=== PATIENT | male | born 1925 | race Caucasian/White ===

== ENCOUNTER 2016-10-07 22:33 | Inpatient (IN) | payer MEDICARE, OTHER ==
[2016-10-07 22:34] VITALS: BMI 21.1
--- NOTE | 2016-10-07 22:48 | ED PDOC ---
Arrival/HPI - General Time Seen by Provider: 10/07/16 22:41 Historian: Patient, Family (Son) - History of Present Illness Narrative History of Present Illness (Text): 10/07/16 22:43 89 year old male, whose past medical history includes CAD with stents, CVA, COPD , chronic kidney disease, nephrectomy, and peripheral vascular disease, who presents to the Emergency department accompanied by family complaining of chest discomfort for about 30 minutes prior to arrival. Son reports associated shortness of breath. The patient denies any fever, chills, headache, abdominal pain, nausea, vomiting, diarrhea, or any other complaints. PMD: Dr. Nader Turner Time/Duration: 1/2 hour Symptom Onset: Gradual Symptom Course: Unchanged Activities at Onset: Rest, Light Context: Home Past Medical History - Provider Review Nursing Documentation Reviewed: Yes - Cardiac Hx Cardiac Disorders: Yes - Pulmonary Hx Chronic Obstructive Pulmonary Disease (COPD): Yes - Neurological HX Cerebrovascular Accident: Yes (08/2013) - HEENT Hx HEENT Disorder: No - Renal Hx Renal Failure: Yes - Endocrine/Metabolic Hx Endocrine Disorders: No - Hematological/Oncological Hx Blood Disorders: No - Integumentary Hx Dermatological Disorder: No - Musculoskeletal/Rheumatological Hx Falls: No - Gastrointestinal Hx Gastrointestinal Disorders: No - Genitourinary/Gynecological Hx Genitourinary Disorders: No - Psychiatric Hx Psychophysiologic Disorder: No Hx Substance Use: No - Surgical History Other/Comment: nephrectomy - Anesthesia Hx Anesthesia: Yes Hx Anesthesia Reactions: No Hx Malignant Hyperthermia: No Family/Social History - Physician Review Nursing Documentation Reviewed: Yes Family/Social History: Unknown Family HX Smoking Status: Former Smoker Hx Alcohol Use: No Hx Substance Use: No Allergies/Home Meds Allergies/Adverse Reactions: Allergies No Known Allergies Allergy (Verified 10/06/15 13:57) Home Medications: Home Meds Medication Instructions Recorded Confirmed Amlodipine Besylate 5 mg PO DAILY 02/28/15 10/07/16 Clopidogrel [Plavix] 10/06/15 Review of Systems - Physician Review All systems were reviewed & negative as marked: Yes - Review of Systems Constitutional: Normal. absent: Fevers Respiratory: SOB Cardiovascular: Chest Pain Gastrointestinal: Normal. absent: Abdominal Pain, Diarrhea, Nausea, Vomiting Neurological: Normal. absent: Headache, Dizziness Physical Exam Vital Signs Reviewed: Yes Vital Signs Temp Pulse Resp BP Pulse Ox 10/07/16 22:51 98.6 F 68 20 143/75 93 L Temperature: Afebrile Blood Pressure: Normal Pulse: Regular Respiratory Rate: Normal Appearance: Positive for: Non-Toxic, Comfortable Pain Distress: None Mental Status: Positive for: Alert and Oriented X 3 - Systems Exam Head: Present: Atraumatic, Normocephalic Pupils: Present: PERRL Extroacular Muscles: Present: EOMI Conjunctiva: Present: Normal Mouth: Present: Moist Mucous Membranes Neck: Present: Normal Range of Motion Respiratory/Chest: Present: Decreased Breath Sounds (Decreased breath sounds bilaterally). No: Respiratory Distress, Accessory Muscle Use Cardiovascular: Present: Regular Rate and Rhythm, Normal S1, S2. No: Murmurs Abdomen: Present: Normal Bowel Sounds. No: Tenderness, Distention, Peritoneal Signs Back: Present: Normal Inspection Upper Extremity: Present: Normal Inspection. No: Cyanosis, Edema Lower Extremity: Present: Other (Venous stasis to bilateral lower extremities). No: Edema Neurological: Present: GCS=15, CN II-XII Intact, Speech Normal Skin: Present: Warm, Dry, Normal Color. No: Rashes Psychiatric: Present: Alert, Oriented x 3, Normal Insight, Normal Concentration Medical Decision Making ED Course and Treatment: 10/07/16 22:14 Impression: 89 year old male complaining of chest pain and shortness of breath tonight. Differential Diagnosis included but are not limited to: cardiac angina vs. COPD vs. pneumonia vs. CHF Plan: -- EKG -- Labs -- CXR -- Aspirin -- Morphine -- Nitroglycerin -- Duoneb Prior Visits: Notes and results from previous visits were reviewed. On 10/06/2015, pt was seen in the ED for a right lower leg laceration. Pt was d/ c home. Progress Notes: EKG: Ordered, reviewed, and independently interpreted the EKG. Rate : 81 BPM Rhythm : sinus rhythm Interpretation : PAC. RBBB. Non-specific ST/T wave changes. 10/08/16 00:23 Reviewed radiology, CXR shows mildly increased pulmonary vascular markings. 10/08/16 02:[address] Olguin, who is aware and agrees with plan. Accepts pt in to her service. Pt will be admitted to Telemetry for CHF, COPD, and chest pain. Requests Dr. Padilla and Dr. Coleman on consult. - Lab Interpretations Lab Results: 10/07/16 23:30 10/07/16 23:30 Lab Results 10/07/16 23:30: PT 13.1 H, INR 1.21 H, APTT 32.1 H 10/07/16 23:30: WBC 2.3 L* D, RBC 2.75 L, Hgb 8.8 L, Hct 27.5 L, MCV 100.0, MCH 32.0, MCHC 32.0, RDW 22.9 H, Plt Count 90 L, MPV 11.6 H 10/07/16 23:30: Sodium 140, Potassium 6.0 H* D, Chloride 107, Carbon Dioxide 24 , Anion Gap 15, BUN 45 H, Creatinine 2.1 H, Est GFR ( Amer) 36, Est GFR ( Non-Af Amer) 30, Random Glucose 112 H, Calcium 8.9, Total Bilirubin 0.5, AST 39 , ALT 38, Alkaline Phosphatase 189 H, Lactate Dehydrogenase 420, Total Creatine Kinase < 20 L, Troponin I < 0.01, NT-Pro-B Natriuret Pep H, Total Protein 6.0, Albumin 3.6, Globulin 2.4, Albumin/Globulin Ratio 1.5 I have reviewed the lab results: Yes - RAD Interpretation Radiology Orders: 10/07/16 22:51 CHEST PORTABLE [RAD] Stat Bookkeeping Machine Operator: ED Physician - EKG Interpretation Interpreted by ED Physician: Yes Type: 12 lead EKG - Medication Orders Current Medication Orders: Methylprednisolone (Solu-Medrol) 125 mg IVP ONCE ONE Stop: 10/08/16 02:24 Discontinued Medications Albuterol Sulfate (Albuterol 0.5% Inhal Samantha (2.5 Mg/0.5 Ml) Ud) 10 mg IH STAT STA Stop: 10/08/16 01:49 Albuterol/Ipratropium (Duoneb 3 Mg/0.5 Mg (3 Ml) Ud) 3 ml IH ONCE STA Stop: 10/07/16 22:52 Last Admin: 10/08/16 00:24 Dose: 3 ml Aspirin (Aspirin) 325 mg PO ONCE STA Stop: 10/07/16 22:52 Last Admin: 10/08/16 00:24 Dose: 325 mg Dextrose (Dextrose 50% Inj) 50 ml IVP ONCE ONE Stop: 10/08/16 01:51 Furosemide (Lasix) 40 mg IVP ONCE ONE Stop: 10/08/16 01:49 Insulin Human Regular (Humulin R) 10 units IVP STAT STA Stop: 10/08/16 01:51 Morphine Sulfate (Morphine) 2 mg IVP STAT STA Stop: 10/07/16 22:52 Last Admin: 10/08/16 00:24 Dose: 2 mg Nitroglycerin (Nitro-Bid 2% Oint) 1 ea TOP ONCE STA Stop: 10/07/16 22:52 Last Admin: 10/08/16 00:26 Dose: 1 ea Sodium Polystyrene Sulfonate (Kayexalate Oral Susp) 30 gm PO ONCE ONE Stop: 10/08/16 01:50 - Scribe Statement The provider has reviewed the documentation as recorded by the Bartolome Gomez training under Jacqui Wise Provider Attestation: All medical record entries made by the Scribe were at my direction and personally dictated by me. I have reviewed the chart and agree that the record accurately reflects my personal performance of the history, physical exam, medical decision making, and the department course for this patient. I have also personally directed, reviewed, and agree with the discharge instructions and dispositi Disposition/Present on Arrival - Present on Arrival Any Indicators Present on Arrival: No History of DVT/PE: No History of Uncontrolled Diabetes: No Urinary Catheter: No History of Decub. Ulcer: No History Surgical Site Infection Following: None - Disposition Have Diagnosis and Disposition been Completed?: Yes Diagnosis: Chest pain, CHF (congestive heart failure), COPD exacerbation Disposition: HOSPITALIZED Disposition Time: 02:15 Patient Plan: Admission Patient Problems: Current Active Problems Problem Status Onset CHF (congestive heart failure) Acute COPD exacerbation Acute Chest pain Acute Condition: STABLE Discharge Instructions (ExitCare): Heart Failure (ED), Chest Pain (ED)
[2016-10-07] MEDS ORDERED: Albuterol-Ipratrop 3 mg / 0.5 (3 ml) UD IH STA (22:51)
[2016-10-07] MEDS ORDERED: Morphine 2 mg/ml ISec IVP STA (22:51)
[2016-10-07] MEDS ORDERED: Nitroglycerin 2% Ointment Foilpak UD TOP STA (22:51)
[2016-10-08 00:01] LABS: ALB/GLOB RATIO 1.5 (1.1-1.8); ALBUMIN 3.6 g/dL (3.0-4.8); ALT/SGPT 38 U/L (7-56); AST/SGOT 39 U/L (15-59); BLOOD UREA NITROGEN 45 mg/dL (7-21); CALCIUM 8.9 mg/dL (8.4-10.5); GFR AFRICAN-AMERICAN 36; GFR NON-AFRICAN AMERICAN 30
[2016-10-08 00:07] LABS: HEMOGLOBIN 8.8 gm/dL (14.0-18.0); RBC 2.75 10^6/uL (3.5-6.1); RED CELL DISTRIBUTION WIDTH 22.9 % (11.5-14.5)
[2016-10-08 00:08] LABS: MEAN PLATELET VOLUME 11.6 fl (7.0-11.0)
[2016-10-08 00:10] LABS: WHITE BLOOD COUNT 2.3 10^3/ul (4.5-11.0)
[2016-10-08 00:12] LABS: B-TYPE NATRIURETIC PEPTIDE 14700 pg/mL (0-450)
[2016-10-08 00:14] LABS: INR 1.21 (0.93-1.08); PARTIAL THROMBOPLASTIN TIME 32.1 Seconds (23.7-30.8); PROTHROMBIN TIME 13.1 Seconds (9.9-11.8)
[2016-10-08 00:32] LABS: TROPONIN I < 0.01 ng/mL
[2016-10-08] MEDS ORDERED: Albuterol 0.5% Inhal Sol (2.5 mg/0.5 ml) UD IH STA (01:48)
[2016-10-08] MEDS ORDERED: Sod Polystyrene Sulf 15 gm/60 ml Oral Susp PO ONE ×2 (01:49→19:13)
[2016-10-08] MEDS ORDERED: Insulin Regular 1 UNITS/0.01 ML ML IVP STA (01:50)
[2016-10-08] MEDS ORDERED: Dextrose 50% SYRINGE Inj (50 ml) IVP ONE (01:50)
[2016-10-08] MEDS ORDERED: Morphine 2 mg/ml ISec IVP STA (02:54)
[2016-10-08] MEDS ORDERED: Morphine 2 mg/ml ISec ONE (02:56)
[2016-10-08] MEDS ORDERED: AMLODIPINE BESYLATE 5 MG PO SCH (10:00)
--- NOTE | 2016-10-08 10:22 | CARD ---
APPROVED REPORT EKG Measurement Heart [id number] <Conclusion> Sinus tachycardia with fusion complexes Right bundle branch block Abnormal ECG
--- NOTE | 2016-10-08 10:23 | CARD ---
APPROVED REPORT EKG Measurement Heart [id number] <Conclusion> Sinus rhythm with premature atrial complexes with aberrant conduction Right bundle branch block Abnormal ECG
[2016-10-08] MEDS: Albuterol-Ipratrop 3 mg / 0.5 (3 ml) UD IH SCH ×2 (13:49→19:19)
--- NOTE | 2016-10-08 15:06 | RAD ---
HISTORY: chest pain COMPARISON: No prior. FINDINGS: LUNGS: The lungs appear slightly hyperinflated ; rule out chronic changes of emphysema or COPD. Mild bibasilar atelectasis right greater than left. Developing infiltrate could be excluded with followup radiographs elevation left hemidiaphragm due to distended air-filled stomach. PLEURA: No significant pleural effusion identified, no pneumothorax apparent. CARDIOVASCULAR: Normal. OSSEOUS STRUCTURES: No significant abnormalities. VISUALIZED UPPER ABDOMEN: Normal. OTHER FINDINGS: None. IMPRESSION: The lungs appear slightly hyperinflated ; rule out chronic changes of emphysema or COPD. Mild bibasilar atelectasis right greater than left. Developing infiltrate could be excluded with followup radiographs elevation left hemidiaphragm due to distended air-filled stomach.
--- NOTE | 2016-10-08 16:59 | CP.PCM.HP ---
History of Present Illness - History of Present Illness History of Present Illness: Narrative History of Present Illness (Text): 10/08/16 89 year old male, whose past medical history includes CAD with stents, CVA, COPD , chronic kidney disease, nephrectomy, and peripheral vascular disease, who presents to the Emergency department accompanied by family complaining of chest discomfort for about 30 minutes prior to arrival. Son reports associated shortness of breath. The patient denies any fever, chills, headache, abdominal pain, nausea, vomiting, diarrhea, or any other complaints. sitting on the bed side , all ouestions answered Present on Admission - Present on Admission Any Indicators Present on Admission: No Review of Systems - Review of Systems All systems: reviewed and no additional remarkable complaints except - Constitutional Constitutional: As Per HPI - EENT Eyes: As Per HPI Ears: As Per HPI Nose/Mouth/Throat: As Per HPI - Cardiovascular Cardiovascular: As Per HPI - Respiratory Respiratory: As Per HPI - Gastrointestinal Gastrointestinal: As Per HPI - Genitourinary Genitourinary: As Per HPI - Musculoskeletal Musculoskeletal: As Per HPI - Integumentary Integumentary: As Per HPI - Neurological Neurological: As Per HPI - Psychiatric Psychiatric: As Per HPI - Endocrine Endocrine: As Per HPI - Hematologic/Lymphatic Hematologic: As Per HPI Past Patient History - Infectious Disease Hx of Infectious Diseases: None - Past Social History Smoking Status: Former Smoker - CARDIAC Hx Cardiac Disorders: Yes - PULMONARY Hx Chronic Obstructive Pulmonary Disease (COPD): Yes - NEUROLOGICAL HX Cerebrovascular Accident: Yes (08/2013) - HEENT Hx HEENT Problems: No - RENAL Hx Renal Failure: Yes - ENDOCRINE/METABOLIC Hx Endocrine Disorders: No - HEMATOLOGICAL/ONCOLOGICAL Hx Blood Disorders: No - INTEGUMENTARY Hx Dermatological Problems: No - MUSCULOSKELETAL/RHEUMATOLOGICAL Hx Falls: No - GASTROINTESTINAL Hx Gastrointestinal Disorders: No - GENITOURINARY/GYNECOLOGICAL Hx Genitourinary Disorders: No - PSYCHIATRIC Hx Psychophysiologic Disorder: No - SURGICAL HISTORY Other/Comment: nephrectomy - ANESTHESIA Hx Anesthesia: Yes Hx Anesthesia Reactions: No Hx Malignant Hyperthermia: No Meds Allergies/Adverse Reactions: Allergies Allergy/AdvReac Type Severity Reaction Status Date / Time No Known Allergies Allergy Verified 10/06/15 13:57 Physical Exam - Constitutional Appears: Well - Head Exam Head Exam: ATRAUMATIC, NORMAL INSPECTION, NORMOCEPHALIC - Eye Exam Eye Exam: EOMI, Normal appearance, PERRL Pupil Exam: NORMAL ACCOMODATION, PERRL - ENT Exam ENT Exam: Mucous Membranes Moist, Normal Exam - Neck Exam Neck exam: Positive for: Normal Inspection - Respiratory Exam Respiratory Exam: Clear to Auscultation Bilateral, NORMAL BREATHING PATTERN - Cardiovascular Exam Cardiovascular Exam: REGULAR RHYTHM - GI/Abdominal Exam GI & Abdominal Exam: Normal Bowel Sounds, Soft. absent: Tenderness - Rectal Exam Rectal Exam: NORMAL INSPECTION - Exam Exam: Circumcision, NORMAL INSPECTION External exam: NORMAL EXTERNAL EXAM Speculum exam: NORMAL SPECULUM EXAM Bimanual exam: NORMAL BIMANUAL EXAM - Extremities Exam Extremities exam: Positive for: normal inspection - Back Exam Back exam: NORMAL INSPECTION - Neurological Exam Neurological exam: Alert, CN II-XII Intact, Normal Gait, Oriented x3, Reflexes Normal - Psychiatric Exam Psychiatric exam: Normal Affect, Normal Mood - Skin Skin Exam: Dry, Intact, Normal Color, Warm Results - Vital Signs Recent Vital Signs: Last Vital Signs Temp 97.5 F L 10/08/16 12:00 Pulse 70 10/08/16 16:17 Resp 15 10/08/16 12:00 BP 129/68 10/08/16 12:00 Pulse Ox 93 L 10/07/16 22:51 - Labs Result Diagrams: 10/07/16 23:30 10/07/16 23:30 Assessment & Plan - Assessment and Plan (Free Text) Assessment: 89 year old male, whose past medical history includes CAD with stents, CVA, COPD , chronic kidney disease, nephrectomy, and peripheral vascular disease, who presents to the Emergency department accompanied by family complaining of chest discomfort for about 30 minutes prior to arrival. Son reports associated shortness of breath. The patient denies any fever, chills, headache, abdominal pain, nausea, vomiting, diarrhea, or any other complaints. pt had RI . called renal consuit . hyperkalemia . got treatment in er , will repeat k , stat , chf . cardiology consult called , getting lasix , copd pul. on the case . . meds ordered , willrepeat labs - Date & Time Date: 10/08/16 Time: 11:00
[2016-10-08] MEDS: Arformoterol 15 mcg/2 ml Inh Sol IH SCH (19:19)
[2016-10-08] MEDS: Budesonide 0.5 mg/2 ml Inhal Susp UD IH SCH (19:19)
[2016-10-08] MEDS: MethylPREDNISolone 40 mg Vial IVP SCH (21:43)
[2016-10-09] MEDS: Albuterol-Ipratrop 3 mg / 0.5 (3 ml) UD IH SCH ×4 (01:32→19:38)
[2016-10-09 04:12] VITALS: RESP 20
[2016-10-09 06:21] LABS: MEAN CELL VOLUME 97.9 fL (80.0-105.0); MEAN CORPUSCULAR HEMOGLOBIN 31.3 pg (25.0-35.0); RBC 2.33 10^6/uL (3.5-6.1); RED CELL DISTRIBUTION WIDTH 22.5 % (11.5-14.5)
[2016-10-09 06:28] VITALS: O2SAT 94
[2016-10-09 06:43] LABS: HEMOGLOBIN 7.3 gm/dL (14.0-18.0)
[2016-10-09 06:54] LABS: ALB/GLOB RATIO 1.4 (1.1-1.8); ALT/SGPT 28 U/L (7-56); AST/SGOT 25 U/L (15-59); BLOOD UREA NITROGEN 52 mg/dL (7-21); CALCIUM 8.5 mg/dL (8.4-10.5); GFR AFRICAN-AMERICAN 38; GFR NON-AFRICAN AMERICAN 32; HDL CHOLESTEROL 44 mg/dL (29-60)
[2016-10-09 06:56] LABS: % IRON SATURATION 77 % (20-55); IRON 149 ug/dL (45-180); TOTAL IRON BINDING CAPACITY 194 ug/dL (261-462)
[2016-10-09 07:02] LABS: TROPONIN I 0.02 ng/mL
[2016-10-09 07:06] LABS: LDL CHOLESTEROL 41 mg/dL (0-129)
[2016-10-09] MEDS ORDERED: Pantoprazole 40 mg Susp UD PO SCH (07:30)
[2016-10-09] MEDS: Budesonide 0.5 mg/2 ml Inhal Susp UD IH SCH ×2 (07:35→19:38)
[2016-10-09] MEDS: Arformoterol 15 mcg/2 ml Inh Sol IH SCH ×2 (07:35→19:38)
--- NOTE | 2016-10-09 08:53 | CON ---
DATE: 10/08/2016 REFERRING PHYSICIAN: Velvet Olguin MD REASON OF CONSULT: Cough, shortness of breath, history chronic obstructive lung disease. HISTORY OF PRESENT ILLNESS: This is an 89-year-old gentleman with past medical history significant for coronary artery disease, history of coronary stent, peripheral vascular disease requiring stent, history of stroke, chronic obstructive lung disease, chronic kidney disease with a dysfunctional one kidney, comes into emergency room with chest pain, shortness of breath, cough, and sputum production. No hemoptysis, no hematemesis, no hematuria, no diarrhea reported. PAST MEDICAL HISTORY: Chronic obstructive lung disease, history of CVA, chronic artery disease, history of stent, peripheral vascular disease requiring stent, and also dysfunctional one kidney. FAMILY HISTORY: No history of cardiopulmonary disease reported. SOCIAL HISTORY: Stopped smoking many years ago. Denies any alcohol use. ALLERGIES: NONE KNOWN. MEDICATIONS: She is on DuoNeb q. 6 hours, Lipitor 20 mg daily, Norvasc 5 mg daily, Protonix 40 mg daily, Tylenol p.r.n. basis. REVIEW OF SYSTEMS: No headache. He has some rhinitis, postnasal drip, cough with clear sputum. Presently, there is no chest pain, no nausea, no vomiting, no diarrhea, no leg pain. Does have some leg swelling. PHYSICAL EXAMINATION GENERAL: Seen and examined at the bedside. Family is at bedside, in no acute distress. VITAL SIGNS: Temp is 98, heart rate 71, respiratory rate 18, blood pressure 129/68, pulse ox 93% on room air. HEENT: Moist mucous membranes. Crowded airway. NECK: Supple. No JVD. LUNGS: Scattered rhonchi and wheezing. CARDIOPULMONARY: S1 and S2. ABDOMEN: Soft. Nontender. No organomegaly. EXTREMITIES: Does have edema of the lower extremity. NEUROLOGICAL: Awake and alert, follows simple commands. LABORATORY DATA: Shows hemoglobin 8.8, hematocrit 27.5, WBC 2.3, platelet count is 90. INR 1.21, PTT is 32. Sodium 140, potassium 6.0, chloride 107, bicarbonate 24, BUN 45, creatinine 2.1, glucose 112, calcium 8.9. AST 39, ALT 38, alkaline phosphatase 189. Troponin less than 0.01, total protein 6.0, albumin 3.6. Head and chest x-ray done, which shows hyperinflated basilar atelectasis, right greater than the left. IMPRESSION AND PLAN: Chronic obstructive lung disease, may have basilar pneumonia, renal failure, coronary artery disease, history of coronary stent, and peripheral vascular disease also with stent. Case discussed with the family at bedside, all the question answered. We will add inhaled bronchodilator,doxycycline 100 mg twice a day, Solu-Medrol 20 mg q. 8 hours. We will check if got Kayexalate, otherwise give dose of Kayexalate; followup electrolytes, CBC. In the past history of pneumonia requiring transfusion. Thank you, I will follow with you. Cyn Coleman MD
[2016-10-09] MEDS ORDERED: Sod Polystyrene Sulf 15 gm/60 ml Oral Susp PO ONE ×2 (09:12→19:50)
[2016-10-09] MEDS: MethylPREDNISolone 40 mg Vial IVP SCH ×2 (10:12→21:58)
--- NOTE | 2016-10-09 12:24 | CON ---
DATE: 10/08/2016 Room 261, bed 2. REASON FOR CONSULTATION: Chest pain. HISTORY OF PRESENT ILLNESS: An 89-year-old male who known to have coronary artery disease with stent inflation, CVA, COPD, chronic kidney disease, nephrectomy, and peripheral vascular disease who came to emergency room with burning type of chest pain, which lasted about 10 minutes or so. Denies diaphoresis, nausea, or vomiting. Denies any chest pain on exertion prior to this. PAST MEDICAL HISTORY: Positive for coronary artery disease with stent insertion, CVA, COPD, chronic kidney disease, nephrectomy, and peripheral vascular disease. PERSONAL HISTORY: Used to smoke about half pack a day. Does not smoke now. Denies drinking. ALLERGIES: THE PATIENT DENIES ANY ALLERGIES. HOME MEDICATIONS: Included: 1. Norvasc 5 mg daily. 2. Lipitor 20 mg daily. 3. Amlodipine 5 mg daily. 4. Plavix 75 mg daily. REVIEW OF SYSTEMS: All other systems reviewed positive as mentioned in history; otherwise, negative. PHYSICAL EXAMINATION: VITAL SIGNS: Blood pressure 129/68, respirations 16, pulse 72, and temperature 97.5. HEENT: Head is normocephalic. Eyes, pupils normal. Conjunctivae slightly pale. NECK: JVP low. Carotids equal. Thorax, AP diameter slightly increased. CARDIOVASCULAR: S1 and S2. LUNGS: No significant rales. ABDOMEN: Soft and nontender. No organomegaly. EXTREMITIES: No clubbing. No cyanosis. LABORATORY DATA: WBC 2.3, hemoglobin 8.8, hematocrit 27.5, and platelets 90. Sodium 140, potassium 6.0, BUN 45, and creatinine 2.1. Random glucose 112. AST and ALT normal. [id number] natriuretic peptide 14,700. Troponin less than 0.01. Total protein abnd bilirubin normal. Chest x-ray elevation of the left hemidiaphragm with gas-filled stomach, emphysematous type of chest x-ray, mild bibasilar atelectasis, a developing infiltrate cannot be excluded. EKG showed sinus tachycardia with *------*complexes, right bundle-branch block. DIAGNOSES: 1. Chest pain. 2. Coronary artery disease. 3. Chronic obstructive pulmonary disease. 4. Old cerebrovascular accident. 5. Peripheral vascular disease. 6. Anemia. 7. Renal dysfunction. 8. Leukopenia. 9. Thrombocytopenia. PLAN: The patient is on Lipitor 20 mg daily, amlodipine 5 mg daily, Plavix 75 mg daily, aspirin 81 mg daily, Solu-Medrol 20 mg IV q.12 hours, also we will add small dose of beta-blockers and Lopressor 25 b.i.d. We will do an echo and we will do IV Lexiscan scan stress test and we will follow with you. Cyn May MD
[2016-10-09 12:47] LABS: FOLATE 7.6 ng/mL
[2016-10-09 13:05] LABS: % IRON SATURATION 81 % (20-55); IRON 160 ug/dL (45-180); TOTAL IRON BINDING CAPACITY 197 ug/dL (261-462)
[2016-10-09 17:27] LABS: FOLATE 9.8 ng/mL
[2016-10-09 19:12] VITALS: TEMP 98.2
[2016-10-09 22:01] VITALS: BP 137/76; PULSE 88
--- NOTE | 2016-10-09 22:04 | CP.PCM.PN ---
Subjective - Date & Time of Evaluation Date of Evaluation: 10/09/16 Time of Evaluation: 22:02 - Subjective Subjective: Patient is alert and oriented, pancytopenia, nephrectomy, cad, copd reviewed, no cp or sob at time of eval. Patient has all his medical treatment in [facility] and wanted to leave ama as he was feeling better. Pt's at the bed side, also spoke to patient's daughter about same and wanted to leave. Primary team notified by the nursing. Patient signed ama sheet, please see the details. Objective - Vital Signs/Intake and Output Vital Signs (last 24 hours): Temp Pulse Resp BP Pulse Ox 98.2 F 88 20 137/76 94 L 10/09/16 19:11 10/09/16 21:54 10/09/16 18:00 10/09/16 21:54 10/09/16 06:00 Intake and Output: 10/09/16 10/10/16 18:59 06:59 Intake Total 0 375 Balance 0 375 - Medications Medications: Current Medications Acetaminophen (Tylenol 325mg Tab) 650 mg PO Q6H PRN PRN Reason: Fever >100.4 F Albuterol/Ipratropium (Duoneb 3 Mg/0.5 Mg (3 Ml) Ud) 3 ml IH [id number] [facility] Last Admin: 10/09/16 19:38 Dose: 3 ml Amlodipine Besylate (Norvasc) 5 mg PO DAILY [facility] Last Admin: 10/09/16 10:12 Dose: 5 mg Arformoterol Tartrate (Brovana) 15 mcg IH [id number] [facility] Last Admin: 10/09/16 19:38 Dose: 15 mcg Aspirin (Ecotrin) 81 mg PO DAILY [facility] Last Admin: 10/09/16 10:12 Dose: 81 mg Atorvastatin Calcium (Lipitor) 20 mg PO DIN [facility] Last Admin: 10/08/16 18:25 Dose: 20 mg Budesonide (Pulmicort Respules) 0.5 mg IH [id number] [facility] Last Admin: 10/09/16 19:38 Dose: 0.5 mg Clopidogrel Bisulfate (Plavix) 75 mg PO DAILY [facility] Last Admin: 10/09/16 10:12 Dose: 75 mg Doxycycline Hyclate (Doryx) 100 mg PO Q12 [facility] PRN Reason: Protocol Last Admin: 10/09/16 21:55 Dose: 100 mg Methylprednisolone (Solu-Medrol) 20 mg IVP Q12 JANICE Last Admin: 10/09/16 21:58 Dose: 20 mg Metoprolol Tartrate (Lopressor) 25 mg PO Q12 [facility] Last Admin: 10/09/16 21:54 Dose: 25 mg Pantoprazole Sodium (Protonix Susp) 40 mg PO ACB [facility] Last Admin: 10/09/16 10:12 Dose: 40 mg - Labs Labs: 10/09/16 06:00 10/09/16 07:30 PT 13.1 Seconds (9.9-11.8) H 10/07/16 23:30 INR 1.21 (0.93-1.08) H 10/07/16 23:30 APTT 32.1 Seconds (23.7-30.8) H 10/07/16 23:30
--- NOTE | 2016-10-10 01:37 | PN ---
PULMONARY PROGRESS NOTE DATE: 10/09/2016 REFERRING PHYSICIAN: Dr. Olguin. SUBJECTIVE: He is lying in the bed, sleepy, arousable, getting blood transfusion. Cough is better, shortness of breath is better. Decreased sputum production. No nausea, no vomiting, no diarrhea. No leg pain or leg swelling. OBJECTIVE: GENERAL: No acute distress. VITAL SIGNS: Temperature 98, heart rate 87, respiratory rate is 20, blood pressure 136/78. HEENT: Moist mucous membranes. Crowded airway. NECK: Supple. No JVD. LUNGS: Have a few scattered rhonchi. HEART: S1 and S2. ABDOMEN: Soft, nontender. No organomegaly. EXTREMITIES: No edema. NEUROLOGIC: Sleepy, arousable. Follows simple commands. MEDICATIONS: He is on Brovana 15 mcg inhaled twice a day, doxycycline 100 mg twice a day, DuoNeb q. 6 hours, Ecotrin 81 mg daily, Lipitor 20 mg daily, metoprolol tartrate 25 mg twice a day, Norvasc 5 mg daily, Plavix 75 mg daily, Protonix 40 mg daily, Pulmicort inhaled twice a day, Solu-Medrol 20 mg q. 12 hours, Tylenol p.r.n. basis. LABORATORY DATA: Shows hemoglobin 7.3, being transfused; hematocrit 22.8; WBC 1.0; platelet is 54. Potassium of 5.5, iron 160, ferritin 986, sodium 139, chloride 105, bicarbonate 26, BUN 52, creatinine 2.0. Hemoglobin A1c is 6.9. AST 25, ALT 28, alkaline phosphatase is 152, albumin is 3.0. IMPRESSION AND PLAN: Chronic obstructive lung disease, basilar infiltrate, may have pneumonia, renal failure, coronary artery disease, history of coronary stent, peripheral vascular disease requiring stent, hyperkalemia, anemia, transfusion done in the past, presently getting transfusion. Continue p.o. and inhaled bronchodilator, continue Kayexalate. Follow potassium. Continue platelet inhibitor. We will send . Thank you and we will follow with you. Cyn Coleman MD
--- NOTE | 2016-10-10 02:28 | CON ---
DATE OF CONSULTATION: 10/09/2016 REASON FOR CONSULTATION: Chronic kidney disease and hyperkalemia. HISTORY OF PRESENTING ILLNESS: The patient is an 89-year-old male previously unknown to me admitted on 10/08 with complaints for left-sided chest pain. The patient has a history of CAD with stents, CVA, COPD, chronic kidney disease, nephrectomy and peripheral vascular disease was brought to the emergency room with chest discomfort of 30 minutes duration, It was associated with shortness of breath. There was no history of cough, fevers, chills. No history of abdominal pain, nausea or vomiting. He did give a history of constipation for 3-4 days prior to his presentation. In the emergency room, he was found to have an elevated potassium of 6.0 and elevated creatinine of 2.1, hence consultation is requested. His troponins were negative. Acute coronary syndrome was ruled out. He was seen by cardiology. Plan is for a Lexiscan. Currently, he denies any chest pain. He denies any shortness pf breath. He denies any nausea, vomiting. PAST MEDICAL AND SURGICAL HISTORY: CAD, PTCA and stents, hypertension, chronic kidney disease stage 4; history of nephrectomy, peripheral vascular disease and COPD. FAMILY HISTORY: Noncontributory. SOCIAL HISTORY: Ex-smoker, no alcohol use, no IV drug abuse. ALLERGIES: No known drug allergies. MEDICATIONS AT HOME: Amlodipine 5 mg daily, Protonix, Colace. Lipitor, Augmentin, Tylenol and Plavix. REVIEW OF SYSTEMS: All systems are reviewed, pertinent positives are mentioned in the history of presenting illness, rest unremarkable. PHYSICAL EXAMINATION GENERAL: Elderly male lying in bed. VITAL SIGNS: Blood pressure 129/58, heart rate 56, respiratory rate 20 and temperature 97.3. HEENT: Normocephalic, atraumatic. NECK: Supple, no JVD. LUNGS: Bilateral equal air entry, bilateral rhonchi, no rales. CARDIOVASCULAR: S1, S2, regular rate and rhythm. No murmurs, no rubs. ABDOMEN: Soft, nondistended, nontender, bowel sounds present. EXTREMITIES: No lower extremity edema. INTAKE AND OUTPUT: 990/1500 LABORATORY DATA: WBC 1.0, hemoglobin 7.3, hematocrit 22.8 and platelets 54. Sodium 139, potassium 5.7, chloride 105, CO2 of 26, BUN 52, creatinine 2.0. Glucose 137, hemoglobin A1c 6.9. Calcium 8.5. Iron saturation is 77, iron 149. AST 25, ALT 28, albumin 3.0. CURRENT MEDICATIONS: Brovana, doxycycline, DuoNeb, Ecotrin, Lipitor, Lopressor, Norvasc, Plavix, Tylenol, Kayexalate 30 gm given this morning, 30 gm given yesterday. ASSESSMENT: 1. Hyperkalemia. 2. Chronic kidney disease, stage IV, appears stable. 3. Pancytopenia. 4. Cne-fdaatvl-bnfneszhl diabetes mellitus ?. 5. Coronary artery disease, history of percutaneous transluminal coronary angioplasty and stents. 6. History of nephrectomy. PLAN: 1. Needs hemolysis workup, check peripheral smear for schistocytes, Chuy test, haptoglobin. 2. Hematology evaluation. 3. Etiology of hyperkalemia may be advanced chronic kidney disease, change diet to 2 gram sodium diet. 4. Rule out GI blood loss. Thank you for the courtesy of this consultation. We will follow this patient closely with you. Stephanie Trejo MD cc:
--- NOTE | 2016-10-10 03:50 | PN ---
DATE OF SERVICE: 10/09/2016 SUBJECTIVE: The patient was seen and examined on bedside. getting nebulizer treatment. is sitting on the bedside. No nausea, vomiting, diarrhea. No hematemesis or hematochezia. No swelling of the legs. No palpitation. Length of time discussion had with the patient's nurse. According to her, patient wants to go home AMA , looking better ,no nausea, vomiting or diarrhea. PHYSICAL EXAMINATION VITAL SIGNS: Temperature 96.2, pulse 88, blood pressure 137/76, respiratory rate 20. HEENT: Head is normocephalic and atraumatic. Eyes; PEERLA, EOMs intact. Conjunctivae clear. Nose patent. Mucous membrane moist. NECK: Supple. No carotid bruits or thyromegaly. CHEST: Bilaterally symmetrical. HEART: S1 and S2, positive. LUNGS: Clear to auscultation. ABDOMEN: Soft. Bowel sounds present. No organomegaly. EXTREMITIES: No edema. No cyanosis. MEDICATION: 1. Brovana. 2. Doxycycline. 3. DuoNeb. 4. Ecotrin. 5. Lopressor. 6. Norvasc. 7. Plavix. 8. Protonix. 9. Pulmicort. 10. Solu-Medrol. 11. Tylenol. LABORATORY DATA: White blood cells noted , hemoglobin 7.2, hematocrit 22.8 and platelets 54. Potassium 5.5. TIBC 197, saturation 81. ASSESSMENT AND PLAN: Mr. Emil Rapp is an 89-year-old male with leukopenia, anemia, thrombocytopenia, actually pancytopenia, status post blood transfusion, hyperkalemia, getting Kayexalate, renal insufficiency, recalled hematology consult with Dr. Carroll. The patient was seen by Dr. Tyler Malin. History of nephrectomy, coronary artery disease, and chronic obstructive pulmonary disease. The patient was getting treatment in [facility]. According to Dr. Malin, the patient wants to leave against medical advice, was on the bedside. Dr. Malin spoke with the patient's daughter , The patient signed against medical advice at 22:01. The patient has a history of cerebrovascular accident, chronic kidney disease, peripheral vascular disease, was admitted for chest pain. The patient is on Lipitor, amlodipine, Plavix, aspirin, tapering dose of steroids. I reviewed Dr. Tyler Malin's notes who tried to educate the patient and family, but failed. The patient will follow up with his own other doctors. Velvet Olguin MD cc: ELVA
--- NOTE | 2016-10-10 07:47 | PN ---
DATE: 10/09/2016 REASON FOR CONSULTATION: Follow up for cough and shortness of breath and cardiac evaluation. BRIEF CLINICAL HISTORY: An 89-year-old male with past medical history significant for coronary artery disease, history of coronary stent, peripheral arterial disease, history of stroke, COPD, was seen yesterday by *------* and scheduled for stress test today. The patient denies any chest pain or shortness of breath, but this morning, platelet count was 54, hemoglobin 7.4, and potassium 5.7, stress was canceled. The patient denies any episode of chest pain. PHYSICAL EXAMINATION: VITAL SIGNS: Temperature afebrile, heart rate *------*, and blood pressure 132/71. HEENT: PERRLA intact. NECK: Supple. No carotid or thyromegaly. CHEST: Clear to auscultation. HEART: S1 and S2 regular. ABDOMEN: Soft. EXTREMITIES: Clubbing or cyanosis negative. LABORATORY DATA: Blood workup as follows: WBC 1.0, hemoglobin 7.2, hematocrit 22.8, and platelet count 54. Chemistry shows sodium 139, potassium 5.7, chloride 105, carbon dioxide 26, anion gap of 14, BUN 52, and creatinine 2.0. IMPRESSION: Acute kidney injury on chronic renal insufficiency *------* 30 mL, pancytopenia, severe anemia, neutropenia, thrombocytopenia, chest pain. So far no evidence of myocardial infarction, no evidence of acute coronary syndrome, and elevated BNP. RECOMMENDATION: We will hold off the stress test because of severe neutropenia, heme/onc evaluation, consider neutropenic precaution. If stat potassium more than 5.5 give Kayexalate 30 g, We will follow. Overall the patient's condition is critical. Long-term prognosis is guarded. We will hold noninvasive workup stress test. We will do the echo to assess LV function. Thank you *------* taking care of Emil Rapp. Cyn Padilla MD
--- NOTE | 2016-10-11 07:39 | DS ---
CHIEF COMPLAINT: Chest pain. HISTORY OF PRESENT ILLNESS: Mr. Dionte Stein is an 89-year-old male with past medical history of coronary artery disease with cardiac stenting, CVA, COPD, chronic kidney disease, nephrectomy, severe peripheral vascular disease , came to the hospital emergency room with chest pain and shortness of breath. The patient was admitted, cardiology consult called Dr. May, pulmonary with Dr. Coleman. 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 The patient was getting treatment, all of a sudden he decided to go against medical advice, Dr. Malin, house physician saw the patient and I had to educate the patient while he was on the bedside. Dr. Malin spoke to the patient's daughter do not go against medical advise, but daughter knows our doctor's team is in [facility], he was getting treatment there, left against medical advice. PAST MEDICAL HISTORY: 1. Coronary artery disease with cardiac stent. 2. Cerebrovascular accident. 3. Chronic obstructive pulmonary disease. 4. Chronic kidney disease. 5. Nephrectomy. 6. Severe peripheral vascular disease. 7. Chronic obstructive pulmonary disease. FAMILY HISTORY: Father and mother noncontributory. ALLERGIES: THE PATIENT IS NOT ALLERGIC TO ANY MEDICATION. HOME MEDICATIONS: 1. Amlodipine. 2. Plavix. REVIEW OF SYSTEMS: The patient was seen and examined on the bedside just getting nebulizer treatment, comfortable. For more details, see my progress note for 10/09/2016. The patient was educated by Dr. Malin that follow up with his own doctors and in case he has again emergency come back to [facility] Emergency Room, call 911. Velvet Olguin MD
--- NOTE | 2016-10-11 18:02 | CON ---
DATE: 10/09/2016. HISTORY OF PRESENT ILLNESS: Mr. Stein was seen on 10/09/2016; however, I am dictating it today. Mr. Stein is an 89-year-old gentleman who I saw in the [facility] at the request of admitting physician Dr. Olguin. The patient was admitted with chest pain and COPD exacerbation. The patient was found to have low blood counts and that is the reason they consulted hematology/oncology. The patient denies any weight loss, night sweats, or fever. The patient denies any abdominal pain, nausea, vomiting, or diarrhea. The patient denies headache, or any neurological weakness. The patient denies any bleeding or any other symptoms. The patient has multiple medical issues including history of coronary artery disease status post stent, history of CVA, COPD, history of chronic kidney disease, nephrectomy, peripheral vascular disease. REVIEW OF SYSTEMS: As stated above. PHYSICAL EXAMINATION: GENERAL: The patient is afebrile. VITAL SIGNS: Pulse is 82, blood pressure 130/72, respirations 18 per minute. HEENT: Unremarkable, anicteric. NECK: Supple. No adenopathy. No JVD. LUNGS: Bilateral air , expiratory rhonchi are present. No rales. ABDOMEN: Soft. Nontender. Bowels sounds present. No hepatosplenomegaly. EXTREMITIES: No . No clubbing. No cyanosis. NEUROLOGICALLY: He is alert, awake, oriented, nonfocal. ASSESSMENT AND PLAN: Mr. Stein is an 89-year-old gentleman who is admitted with chest pain and COPD exacerbation. I ordered several blood test to further evaluate his pancytopenia. At the time of this dictation, many of those blood test were available. The patient had an iron of 160, TIBC of 197 and saturation of 81%. The patient also had a high ferritin level of 986. The patient also had a high erythropoietin level of 252.5 which needs further evaluation and workup. The patient had normal B12 and folic acid level. His coagulation profile was mildly elevated with INR of 1.21. The patient's chest x-ray showed that the patient could have a COPD or emphysema. The patient's pancytopenia needs further evaluation and will need a bone marrow biopsy. The bone marrow biopsy was explained in great detail to the patient on 10/09/2016 on Sunday. The patient, however, was reluctant and refused the bone marrow biopsy and when I came to see him next day on 10/10/2016, it was found that the patient signed against medical advise. I discussed the issue with the admitting physician Dr. Olguin. I told Dr. Olugin that the patient needs further evaluation and bone marrow biopsy to rule out myelodysplastic syndrome or conditions like leukemia. I also recommended that the patient would need CT scan of the abdomen to further evaluate high erythropoietin level to rule out any tumor related to the kidneys area. Dr. Olguin will try to contact the patient. I told doctor to send the patient to my office for further evaluation and then we will go from there. We will also try to contact the patient to see if the patient can come to my office, but patient certainly needs further evaluation of his pancytopenia and high erythropoietin level, that was communicated to all involved in the care of the patient. Hank Carroll MD
[2016-10-11 21:18] LABS: ALBUMIN (PEP) 3.2 g/dL (3.8-4.8); ALPHA-1-GLOBULIN (PEP) 0.3 g/dL (0.2-0.3)
--- NOTE | 2016-10-12 15:10 | PQF CHF ---
10/12/16 Dr. Padilla, Acute CHF is documented on ED notes. Please indicate type of CHF, as listed below. Clarification of your documentation is requested to better reflect the severity of illness and intensity of treatment of your patient. Indicators present [] Diagnosis of CHF and/or history of CHF [] BNP > 200 [] Imaging Finding of Pulmonary Edema /Pleural Effusions [] Fluid/Volume Overload [] Pitting edema [] Ejection Fraction < 40% (Indicative of Systolic Heart Failure) [] Ejection Fraction > 40% (Indicative of Diastolic Heart Failure) [] Dyspnea / Orthopenea / Paroxysmal Nocturnal Dyspnea [] Other: Location in the medical record that reflects the above clinical findings: [] Treatment Provided: [] PHYSICIAN'S RESPONSE Based on your medical judgment of the clinical indicators outlined above, are you treating this patient for a known or suspected: [] Acute CHF [] Systolic [] Diastolic [] Combined [] Chronic CHF [] Systolic [] Diastolic [] Combined [x] Acute on Chronic CHF [x]Systolic [] Diastolic [] Combined [] CHF due hypertension [] Acute systolic []Chronic systolic [] Acute/ chronic systolic [] Other, please indicate: [] [] If Unable to Determine, please check the box, sign and date. Present On Admission (POA) Indicator: [] Present at the time of admission [] Not present at the time of admission [] Clinically Undetermined In responding to this query, please exercise your independent professional judgment. The fact that a question is asked does not imply that any particular answer is desired or expected. Thank you for your clarification on this documentation. If you have any questions please call:[ ] * Thank you, [ ] batch and furnace manager ELVA
== END 2016-10-09 22:42 | disposition left against medical advice (07) | DRG 190 ==
LOC: ED 22:33 → ERH 10-08 02:16 → 2RNO 10-08 04:52
PROVIDERS: ADMIT Internal Medicine; ATTEND Internal Medicine
PROC: 30233N1 Transfusion of Nonautologous Red Blood Cells into Peripheral Vein, Percutaneous Approach (ICD-10-PCS; principal; 2016-10-09)
DX: J44.1 Chronic obstructive pulmonary disease with (acute) exacerbation (principal); I50.23 Acute on chronic systolic (congestive) heart failure; N18.4 Chronic kidney disease, stage 4 (severe); N17.9 Acute kidney failure, unspecified; D61.818 Other pancytopenia; E11.22 Type 2 diabetes mellitus with diabetic chronic kidney disease; E87.5 Hyperkalemia; I45.10 Unspecified right bundle-branch block; I13.0 Hypertensive heart and chronic kidney disease with heart failure and stage 1 through stage 4 chronic kidney disease, or unspecified chronic kidney disease; D70.9 Neutropenia, unspecified; I25.10 Atherosclerotic heart disease of native coronary artery without angina pectoris; Z86.73 Personal history of transient ischemic attack (TIA), and cerebral infarction without residual deficits; I73.9 Peripheral vascular disease, unspecified; Z79.02 Long term (current) use of antithrombotics/antiplatelets; Z79.84 Long term (current) use of oral hypoglycemic drugs; Z79.899 Other long term (current) drug therapy; Z87.01 Personal history of pneumonia (recurrent); Z87.891 Personal history of nicotine dependence; Z90.5 Acquired absence of kidney; Z95.5 Presence of coronary angioplasty implant and graft; R07.9 Chest pain, unspecified